=== PATIENT | female | born 1995 | race African-American/Black ===

== ENCOUNTER 2021-02-11 20:03 | Emergency (ER) | payer MEDICAID ==
[~2021-02-11] VITALS: Ht 162.6 cm; Wt 59.1 kg
[2021-02-11 23:45] VITALS: BP 119/73
== END 2021-02-11 23:50 | disposition home or self-care (01) ==
LOC: EMS 20:07
DX: S80.01XA Contusion of right knee, initial encounter (principal); Z91.018 Allergy to other foods; W19.XXXA Unspecified fall, initial encounter; Y93.89 Activity, other specified; Y92.89 Other specified places as the place of occurrence of the external cause; Y99.8 Other external cause status
CPT/HCPCS: 99283